=== PATIENT | female | born 1980 | race Caucasian/White ===

== ENCOUNTER 2017-06-05 14:57 | Emergency (ER) | payer OTHER ==
[~2017-06-05] VITALS: Ht 175.3 cm; Wt 60.6 kg
[~2017-06-05 14:57] MED LIST: ATARAX,VISTARIL25 MG PO
[2017-06-05 20:58] LABS: HEMATOCRIT 42.7 % (36.0-46.0); MCH 30.7 PG (29.0-34.0); MEAN PLAT.VOLUME 10.4 uM^3 (9.5-12.4); PLATELET COUNT 289 K/uL (156-360); RBC DIS.WIDTH-CV 12.3 % (11.8-14.6); RED BLOOD COUNT 4.59 M/uL (3.80-5.20); WHITE BLOOD COUNT 8.4 K/uL (4.1-10.2)
[2017-06-05 21:09] LABS: CHLORIDE 110 mEq/L (99-109); POTASSIUM 3.8 mEq/L (3.7-5.4); SODIUM 142 mEq/L (136-147)
[2017-06-05 21:11] LABS: GLUCOSE 102 mg/dL (70-99)
[2017-06-05 21:12] LABS: ANION GAP 6 MEQ/L (2-14)
[2017-06-05 21:13] LABS: TOTAL BILIRUBIN 0.3 mg/dL (0.0-1.0)
[2017-06-05 21:14] LABS: ALKALINE PHOSPHATASE 62 IU/L (3-129); SERUM ETHYL ALCOHOL < 10 mg/dL
[2017-06-05 21:15] LABS: GFR ESTIMATE (CALCULATED) > 59 mL/min/
[2017-06-05 21:16] LABS: UREA NITROGEN (BUN) 15 mg/dL (9-23)
[2017-06-05 21:23] LABS: QUANTITATIVE HCG < 4.0 MIU/ML
[2017-06-05 22:30] LABS: ADD MIUA? YES; BILIRUBIN NEGATIVE; BLOOD NEGATIVE; COLOR YELLOW ((YELLOW)); GLUCOSE (STRIP) NEGATIVE; KETONES NEGATIVE; LEUKOCYTES NEGATIVE; NITRITE NEGATIVE; PROTEIN (STRIP) NEGATIVE; SPECIFIC GRAVITY 1.019 (1.000-1.030)
[2017-06-05 22:39] LABS: AMPHETAMINE PRESUMPTIVE POSITIVE (500 ng/mL); BARBITURATES NEGATIVE (200 ng/mL); BENZODIAZEPINES NEGATIVE (150 ng/mL); COCAINE NEGATIVE (150 ng/mL); INTERNAL CONTROLS VALID? YES; METHADONE NEGATIVE (200 ng/mL); METHAMPHETAMINE NEGATIVE (500 ng/mL); OPIATES (MORPHINE) NEGATIVE (100 ng/mL); OXYCODONE NEGATIVE (100 ng/mL); PHENCYCLIDINE NEGATIVE (25 ng/mL); PROPOXYPHENE NEGATIVE (300 ng/mL); THC CANNABINOIDS NEGATIVE (50 ng/mL); TRICYCLIC ANTIDEPRESSANTS NEGATIVE (300 ng/mL)
[2017-06-05 22:46] LABS: BACTERIA 2+ /HPF; CALCIUM OXALATE CRYSTALS 3+ /HPF; EPITHELIAL CELLS 1+ /HPF; MUCUS 4+ /LPF; RED BLOOD CELLS 0-5 /HPF (0-5); WHITE BLOOD CELLS 0-5 /HPF (0-5)
[2017-06-05 22:48] LABS: ADD MEDTOX COMMENT Y
[2017-06-05 23:29] VITALS: BP 131/81
== END 2017-06-05 23:29 | disposition home or self-care (01) ==
LOC: EME 14:57
PROVIDERS: Emergency Medicine
DX: F41.9 Anxiety disorder, unspecified (principal); F32.9 Major depressive disorder, single episode, unspecified; F17.200 Nicotine dependence, unspecified, uncomplicated; Z79.3 Long term (current) use of hormonal contraceptives; Z88.0 Allergy status to penicillin
CPT/HCPCS: 80053; 81003; 84702; 84999; 85027; 90839; 99281; 99285; G0480